=== PATIENT | female | born 1985 | race African-American/Black ===

== ENCOUNTER 2016-11-14 03:51 | Emergency (ER) | payer MEDICAID, OTHER ==
[~2016-11-14] VITALS: Ht 149.9 cm; Wt 49.9 kg
[~2016-11-14 03:51] MED LIST: KEFLEX500 MG ORAL; PRENATAL FORMU1 EAC2 ORAL
[2016-11-14] MEDS ORDERED: NKM (04:07)
--- NOTE | 2016-11-14 04:34 | Emergency Room Report ---
History of Present Illness General Chief Complaint: Abdominal Pain Source: Patient Present Illness HPI Is a 31-year-old female with no cerebrovascular question. Questionable psych history. Patient checked in with multiple complaints. Initially she said that she was itching. She told the nurse that she been having abdominal pain since 2011. I did not get to see this patient. I went to the room she was in the bathroom. She was in there for a long period of time. I went to suture another patient. When I was very patient walked out of the ER. Patient refused to get undressed per nursing staff. She was not cooperative. She said she doesn't want to stay. So she got up and left. Again I do not see the patient. Allergies: Coded Allergies: METRONIDAZOLE (Verified Allergy, Unknown, 12/28/15) Patient History Past Medical History: see triage record, old chart reviewed Past Surgical History: other Pertinent Family History: none Social History: Denies: drug use Last Menstrual Period: yesterday Now: No : 3 Immunizations: other Reviewed Nursing Documentation: PMH: Agreed, PSxH: Agreed Nursing Documentation-PMH Past Medical History: No Stated History Review of Systems Gastrointestinal: Reports: abdominal pain All Other Systems: limited Physical Exam Vital Signs Date Time Temp Pulse Resp B/P Pulse Ox O2 Delivery O2 Flow Rate FiO2 11/14/16 04:00 97.7 86 18 142/87 98 Medical Decision Making Diagnostic Impression: Primary Impression: Abdominal pain Qualified Codes: R10.84 - Generalized abdominal pain Last Vital Signs Date Time Temp Pulse Resp B/P Pulse Ox O2 Delivery O2 Flow Rate FiO2 11/14/16 04:00 97.7 86 18 142/87 98 Status: unchanged Disposition: ELOPED Condition: Stable Referrals: [facility],REFERRING (PCP) KOMAL OSEGUERA M.D. Nov 14, 2016 04:34
[2016-11-14 04:35] VITALS: BP 142/87
== END 2016-11-14 04:39 | disposition left against medical advice (07) ==
LOC: EMR 04:05
DX: R10.84 Generalized abdominal pain (principal); Z53.21 Procedure and treatment not carried out due to patient leaving prior to being seen by health care provider
CPT/HCPCS: 99281